=== PATIENT | male | born 1990 | race Caucasian/White ===

== ENCOUNTER 2018-08-20 03:39 | Emergency (ER) | payer MEDICAID, BC ==
[~2018-08-20] VITALS: Ht 177.8 cm; Wt 81.6 kg
[2018-08-20 03:54] VITALS: BP 123/79
--- NOTE | 2018-08-20 03:54 | NUR ---
TO BED # 09 AMBULATORY
--- NOTE | 2018-08-20 04:03 | NUR ---
28 YO M BIB SELF C/O "BITE" TO SUPRAPUBIC REGION THAT APPEARED YESTERDAY. SMALL RED BUMP NOTED TO PUBIC REGION. NO DRAINAGE. DENIES FEVER, CHILLS, NVD. PMH-- DENIES RX-- DENIES DR. BLANK AT BEDSIDE.
--- NOTE | 2018-08-20 04:04 | NUR ---
Dr. Wood evaluating patient at bedside.
[2018-08-20 04:08] VITALS: BP 123/79
== END 2018-08-20 04:08 | disposition home or self-care (01) ==
LOC: MED 03:39
DX: L73.9 Follicular disorder, unspecified (principal); Z88.0 Allergy status to penicillin
CPT/HCPCS: 99283

== ENCOUNTER 2019-01-27 18:21 | Emergency (ER) | payer BC, MEDICAID ==
[~2019-01-27] VITALS: Ht 177.8 cm; Wt 88.0 kg
[2019-01-27 18:42] VITALS: BP 125/76
--- NOTE | 2019-01-27 19:42 | NUR ---
DR CARTAGENA AT CHAIRSIDE EVALUATING PT.
--- NOTE | 2019-01-27 19:42 | NUR ---
PT AMBUALTED TO CHAIR Jenny
--- NOTE | 2019-01-27 19:47 | NUR ---
Patient discharged with v/s stable. Written and verbal after care instructions given and explained. Patient verbalized understanding. Ambulatory with steady gait. All questions addressed prior to discharge. Advised to follow up with PMD. Addendum: 01/31/19 at 1350 by [email or web address] D/C BY DR CARTAGENA
--- NOTE | 2019-01-27 19:47 | NUR ---
PT SEEN AND EVALUATED BY DR CARTAGENA, SEE DR'S NOTES FOR FURTHER ASSESSMENT.
[2019-01-27 19:49] VITALS: BP 125/76
== END 2019-01-27 19:47 | disposition home or self-care (01) ==
LOC: MED 18:21
DX: B09 Unspecified viral infection characterized by skin and mucous membrane lesions (principal); Z88.0 Allergy status to penicillin
CPT/HCPCS: 99281

== ENCOUNTER 2021-07-27 13:28 | Emergency (ER) | payer SELFPAY ==
[~2021-07-27] VITALS: Ht 175.3 cm; Wt 96.2 kg
[2021-07-27 13:33] VITALS: BP 138/89
--- NOTE | 2021-07-27 14:20 | NUR ---
BIB SELF C/O NAUSEA, 3/10 LOWER BACK PAIN X 2 DAYS.
--- NOTE | 2021-07-27 14:41 | NUR ---
Patient being evaluated by KENIA FELIPE at TRIAGE ROOM.
--- NOTE | 2021-07-27 15:03 | NUR ---
PT AMB TO BED 12.
[2021-07-27 15:33] LABS: BASOPHILS # (AUTO) 0.1 K/uL (0.00-0.22); BASOPHILS % (AUTO) 0.7 % (0.0-2.0); EOSINOPHILS # (AUTO) 0.2 K/uL (0-0.4); EOSINOPHILS % (AUTO) 2.1 % (0.0-4.0); HEMATOCRIT 45.2 % (36-52); LYMPHOCYTES # (AUTO) 1.8 K/uL (2.0-11.5); LYMPHOCYTES % (AUTO) 15.7 % (20.5-51.1); MEAN CORPUSCULAR HEMOGLOBIN 31 pg (27-31); MEAN CORPUSCULAR HGB CONC 33 g/dL (33-37); MEAN CORPUSCULAR VOLUME 92.9 fL (80-94); MONOCYTES # (AUTO) 0.9 K/uL (0.8-1.0); MONOCYTES % (AUTO) 8.1 % (1.7-9.3); NEUTROPHILS # (AUTO) 8.3 K/uL (1.8-7.7); NEUTROPHILS % (AUTO) 73.4 % (42.2-75.2); PLATELET COUNT (AUTO) 250 K/uL (140-450); RED BLOOD CELL COUNT(AUTO) 4.86 MIL/uL (4.20-6.10); RED CELL DISTRIBUTION WIDTH 13.7 % (11.6-13.7); WHITE BLOOD COUNT (AUTO) 11.2 K/uL (4.8-10.8)
[2021-07-27 16:17] LABS: ALBUMIN 3.9 g/dL (3.4-5.0); ANION GAP 10.2 (8-16); CARBON DIOXIDE 30.6 mmol/L (21-32); CREATININE 1.3 mg/dL (0.6-1.3); POTASSIUM 3.8 mmol/L (3.5-5.1); TOTAL BILIRUBIN 0.8 mg/dL (0.0-1.0)
[2021-07-27 17:15] VITALS: BP 131/86
== END 2021-07-27 17:03 | disposition home or self-care (01) ==
LOC: MED 13:28
DX: M54.50 Low back pain, unspecified (principal); N28.9 Disorder of kidney and ureter, unspecified; Z98.890 Other specified postprocedural states; Z88.0 Allergy status to penicillin
CPT/HCPCS: 36415; 80053; 81002; 85025; 99283